=== PATIENT | female | born 1980 | race African-American/Black ===

== ENCOUNTER 2018-07-12 14:13 | Emergency (ER) | payer SELFPAY ==
[~2018-07-12] VITALS: Ht 165.1 cm; Wt 65.0 kg
[2018-07-12] MEDS ORDERED: ARIP2TAB3 PO (14:19)
[2018-07-12 15:31] LABS: HEMATOCRIT. 36.3 % (36.0-48.0); MEAN PLATELET VOLUME 9.8 fl (7.4-10.4); PLATELET 156 x1000/uL (130-400); RED BLOOD CELL COUNT 3.74 mill/uL (4.2-5.4)
[2018-07-12 15:34] LABS: CHLORIDE 102 mEq/L (98-107)
[2018-07-12 15:46] LABS: B-HCG QUANTITATIVE < 1 mIU/mL (<3)
[2018-07-12 15:54] LABS: PLATELET ESTIMATE NORMAL
[2018-07-12 16:58] VITALS: BP 102/42
== END 2018-07-12 17:10 | disposition home or self-care (01) ==
LOC: ER 14:26
DX: R10.33 Periumbilical pain (principal); M25.552 Pain in left hip; M25.551 Pain in right hip; M54.9 Dorsalgia, unspecified; R11.2 Nausea with vomiting, unspecified; Z79.899 Other long term (current) drug therapy
CPT/HCPCS: 36415; 76830; 76856; 80053; 84702; 85025; 86850; 86900; 99285